=== PATIENT | female | born 1985 | race Caucasian/White ===

== ENCOUNTER → 2018-01-11 | Outpatient (REF) | payer OTHER ==
[2018-01-11 10:45] LABS: BASO % 0.3 % (0.0-1.0); EOS # 0.1 10^3/uL (0.0-0.50); EOS % 1.3 % (0.0-3.0); HEMATOCRIT 39.9 % (36.0-47.0); HEMOGLOBIN 12.8 g/dl (12.0-15.5); IMMATURE GRANULOCYTE % 0.3 % (0-3.0); LYMPH # 1.6 10^3/uL (1.5-4.5); LYMPH % 27.2 % (24.0-44.0); MEAN CORPUSCULAR HEMOGLOBIN 29.1 pg (27.0-33.0); MEAN CORPUSCULAR HGB CONC 32.1 g/dl (32.0-36.5); MEAN CORPUSCULAR VOLUME 90.7 fl (80.0-96.0); MONO # 0.3 10^3/uL (0.0-0.8); MONO % 4.8 % (0.0-5.0); NEUTROPHILS % 66.1 % (36.0-66.0); PLATELET COUNT, AUTOMATED 207 10^3/uL (150-450); RED CELL DISTRIBUTION WIDTH 11.9 % (11.5-14.5)
[2018-01-11 11:07] LABS: ALBUMIN 3.9 GM/DL (3.2-5.2); ALBUMIN/GLOBULIN RATIO 1.05 (1.00-1.93); ALKALINE PHOSPHATASE 70 U/L (45-117); ALT/SGPT 17 U/L (12-78); ANION GAP 1 MEQ/L (8-16); AST/SGOT 10 U/L (7-37); BILIRUBIN,TOTAL 0.5 MG/DL (0.2-1.0); BLOOD UREA NITROGEN 10 MG/DL (7-18); CALCIUM LEVEL 8.8 MG/DL (8.5-10.1); CARBON DIOXIDE LEVEL 33 MEQ/L (21-32); CHLORIDE LEVEL 106 MEQ/L (98-107); CREATININE FOR GFR 0.64 MG/DL (0.55-1.30); GLOMERULAR FILTRATION RATE > 60.0 (>60); GLUCOSE, FASTING 79 MG/DL (70-100); POTASSIUM SERUM 4.4 MEQ/L (3.5-5.1); RHEUMATOID FACTOR QUANT < 10.0 IU/ML (<15.0); SODIUM LEVEL 140 MEQ/L (136-145); TOTAL PROTEIN 7.6 GM/DL (6.4-8.2)
[2018-01-11 11:16] LABS: TOTAL 25(OH) VITAMIN D 31.2 NG/ML (30.0-100.0); VITAMIN B12 LEVEL 392 PG/ML
[2018-01-11 11:22] LABS: FOLATE 12.2 NG/ML
[2018-01-11 11:55] LABS: ERYTHROCYTE SEDIMENTATION RATE 8 mm/hr (0-20)
[2018-01-17 14:14] LABS: ANTINUCLEAR ANTIBODIES DIRECT Negative (Negative); VITAMIN B6,PYRIDOXAL PHOSPHATE 7.9 ug/L (2.0-32.8); VITAMIN E(ALPHA TOCOPHEROL) 8.2 mg/L (5.9-19.4); VITAMIN E(GAMMA TOCOPHEROL) 1.6 mg/L (0.7-4.9)
== END ==
LOC: M LABNEURO 09:41
DX: R51 Headache (principal)

== ENCOUNTER → 2018-03-20 | Outpatient (CLI) | payer OTHER ==
[~2018-03-20] MED LIST: ISOVUE-370 76% 100ML VIAL (Q9967) As Ordered ONE
--- NOTE | 2018-03-21 09:59 | REP ---
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 Decreased attenuation is present in the anterior left temporal and posterior left frontal lobe. There is dilatation of the overlying cortical sulci. This represents encephalomalacia. There is no intraparenchymal hemorrhage, acute infarct, mass or midline shift. The ventricular system is normal in appearance. There is no extra cerebral collection. There is no fracture. The visualized sinuses are clear. IMPRESSION: 1. 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 2. Left frontal temporal lobe encephalomalacia. Electronically Signed by Rony Sinha MD 03/21/2018 09:50 A
--- NOTE | 2018-03-21 10:00 | REP ---
CT ANGIO HEAD: HISTORY: Migraine headaches. CONTRAST: Isovue 370, 75 mL. The patient is status post left frontotemporal craniotomy and _ clipping of an __ anterior communicating artery aneurysm. There is no residual aneurysm. There is no new aneurysm or arteriovenous malformation. Major intracranial vessels are patent. The vertebral arteries are equal in size. The deep venous system and dural sinuses are patent. 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 There is no residual aneurysm. Electronically Signed by Rony Sinha MD 03/21/2018 10:08 A
== END ==
LOC: M RAD 17:19
PROVIDERS: ATTEND Psychiatry & Neurology Neurology
DX: G44.221 Chronic tension-type headache, intractable (principal); I67.1 Cerebral aneurysm, nonruptured; I60.12 Nontraumatic subarachnoid hemorrhage from left middle cerebral artery; G43.719 Chronic migraine without aura, intractable, without status migrainosus
CPT/HCPCS: 70450; 70496; Q9967

== ENCOUNTER → 2018-04-08 | Outpatient (REF) | payer OTHER | LOC: M SFHCLERA 10:48 | PROVIDERS: ATTEND Physician Assistant | DX: J02.9 Acute pharyngitis, unspecified (principal) ==

== ENCOUNTER → 2019-06-08 | Outpatient (CLI) | payer OTHER ==
--- NOTE | 2019-06-08 10:53 | REP ---
OB ULTRASOUND: Real-time sonographic evaluation of the gravid uterus is performed. There is a single living intrauterine gestation. The estimated gestational age is 20 weeks 1 day, EDC 10/25/2019. Today's measurements indicate appropriate growth. BPD 46 mm = 20 weeks 0 days, 46th percentile HC 170 mm = 19 weeks 4 days, 35th percentile AC 158 mm = 21 weeks 0 days, 68th percentile Femur length 32 mm = 19 weeks 6 days, 44th percentile HC/AC ratio 1.07 within normal range of 1.06-1.24. Estimated weight 348 grams, 56th percentile. Cervix is closed and measures 4.2 cm in length. heart rate 132 beats per minute. SEEN/GROSSLY UNREMARKABLE Lateral ventricles Yes Posterior fossa Yes Upper lip Yes Four-chamber heart Yes LVOT Yes RVOT Yes Stomach Yes Cord insertion Yes Three vessel cord Yes Kidneys Yes Bladder Yes Spine Yes position: Breech. Placenta: Anterior and fundal and grade 0 with no previa or abruption. Amniotic fluid: Within normal limits. Cystic structure left ovary contains a thin internal septation. It measures 4.0 x 2.5 x 2.5 cm. Blood flow is seen in the left ovary with duplex Doppler evaluation, with no torsion. Electronically Signed by Doe Soares MD 06/08/2019 11:43 A
== END ==
LOC: M RAD 09:07
PROVIDERS: ATTEND Obstetrics & Gynecology
DX: Z34.82 Encounter for supervision of other normal pregnancy, second trimester (principal); Z3A.19 19 weeks gestation of pregnancy

== ENCOUNTER 2019-10-22 20:57 | Outpatient (CLI) | payer OTHER ==
[~2019-10-22] VITALS: Ht 162.6 cm; Wt 79.3 kg
[2019-10-22 21:20] VITALS: BP 123/68
[2019-10-22] MEDS ORDERED: TUMS500C PO (21:30)
[2019-10-22] MEDS ORDERED: ACET-683 PO (21:30)
[2019-10-22] MEDS ORDERED: PRENTAB9 PO (21:30)
== END 2019-10-22 22:27 | disposition home or self-care (01) ==
LOC: M LDO 20:57
DX: O47.1 False labor at or after 37 completed weeks of gestation (principal); Z3A.39 39 weeks gestation of pregnancy
CPT/HCPCS: G0378; G0463

== ENCOUNTER 2019-10-25 00:18 | Inpatient (IN) | payer OTHER ==
[2019-10-25] VITALS (79 sets, daily range): BP systolic 67–142; BP diastolic 37–92
[~2019-10-25] VITALS: Ht 162.6 cm; Wt 78.8 kg
[~2019-10-25 00:18] MED LIST changes: +ACET-683 PO; -ISOVUE-370 76% 100ML VIAL (Q9967) As Ordered ONE; +PRENTAB9 PO; +TUMS500C PO
[2019-10-25] MEDS ORDERED: SIMETHICONE 80 MG CHEW TAB PO PRN (01:00)
[2019-10-25] MEDS ORDERED: BUTORPHANOL 2 MG/ML INJ (J0595) IV PRN (01:00)
[2019-10-25] MEDS ORDERED: PROMETHAZINE INJ 25 MG/ML VIAL (J2550) IV PRN (01:00)
[2019-10-25] MEDS ORDERED: CALCIUM CARBONATE 500 MG CHEW U/D PO PRN (01:00)
[2019-10-25] MEDS ORDERED: LACTATED RINGER'S 1000 ML IV STA (01:00)
[2019-10-25] MEDS ORDERED: ACETAMINOPHEN 500 MG TAB PO PRN (01:00)
[2019-10-25] MEDS ORDERED: diphenhydrAMINE 25MG CAP PO PRN (01:00)
[2019-10-25] MEDS ORDERED: MOM 30ML SUSPENSION UDC PO PRN (01:00)
--- NOTE | 2019-10-25 01:21 | HPEPDOC ---
Obstetrical History & Physical General Date of Admission Oct 25, 2019 at 00:47 History of Present Illness Patient is a 34yo at 40.0wks by LMP c/w 6wk US. Gush of clear fluid at 2300 with continual leakage. Then ctx q3-4min and getting stronger. No VB. +FM. No headache or visual changes. Chief Complaint: Contractions, term, Rupture of membranes Information Provided By: Patient : 3 Term: 2 Livin Care Care: Good Care Dating Final EDC: Oct 25, 2019 Final EDC by: LMP Antepartum Course Height (inches): 64 Pre- weight (lbs.): 147 Admission Weight (lbs.): 174 Change in Weight (lbs.): 27 Past Medical History Past Obstetrical History : Past Obstetrical History: Multigravida Type of Delivery: Spontaneous Vaginal Del. 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 Past Medical History Medical History migraines, depression, brain aneurysm treated with clips (cleared for no further tx by neuro in [place]) Surgical History: [place] teeth, Other (Brain surgery) Family History Significant Family History: No pertinent family hx Social History Marital Status: Family situation: Spouse/partner home Psychosocial History: Depression * Smoker: non-smoker Alcohol: rarely Abuse Violence Screening Have you been hit/kicked/slapp: No Have you been sexually assault: No Imunizations Tdap status: current Influenza Status: declined Allergies Coded Allergies: No Known Allergies (Unverified , 10/22/19) Medications Scheduled Acetaminophen (Acetaminophen) 500 Mg Tablet, 2 TAB PO Q6H for fever Calcium Carbonate (Tums) 200 Mg Tab.chew, 2 TAB PO Q4H for cough and congestion No.137/Iron/Folic Acd ( Vitamin Tablet) 1 Each Tablet, 1 TAB PO DAILY Physical Examination Physical Examination GENERAL: Alert and oriented times three. BREAST: . ABDOMEN: Gravid and non-tender to touch. FETUS: Is vertex (VTX) by sterile vaginal examination (SVE), fetus is 3200 by Kris. HEART RATE: Regular rate and rhythm. LUNGS: Clear to auscultation (CTA). EXTREMITIES: No edema. Laboratory Data 24H LABS Laboratory Tests 2 10/25/19 00:51: Serology Scanned Report Hepatitis B Testing CBC/BMP 9.6/11.7/34.8/176 Urine Culture: No Growth Pertinent Laboratoy Data Blood Type: O+ RBC Antibody Screen: Negative HIV: Negative Hepatitis B: Negative Rapid Plasma Reagin: Nonreactive Rubella: Immune Varicella: Immune Chlamydia/Gonorrhea: Negative Group B Streptococcus: Negative Quad Screen Test: Negative Cystic Fibrosis: Negative Glucose Tolerance Test: 104 Anatomy Ultrasound Ultrasound Date: Jun 08, 2019 Placenta Location: Anterior Normal Anatomy: Yes Placenta Previa: No Estimated Weight (grams): 348 Steroid Therapy Steroid Therapy: No Vaginal Examination Dilation: 1cm Effacement: 50% Station: -3 Cervical Consistency: Medium Cervical Position: Posterior Presentation: Cephalic presentation Assessment Heart Rate (FHR): 120 Variability: Decreased Accelerations: Positive Decelerations: None Tocometer Contractions: Yes Frequency: regular, every 2-5 min. Multi-drug resistant Organism: No history of MDRO Assessment/Plan Assessment Patient is a 34yo at 40.0wks by LMP c/w 6wk US. Admit for SROM and expect delivery by . Pain management per patient preference, which was discussed with her. I discussed risks of with patient of failure with section, distress, bleeding, infection, , vaginal or perineal or ne ighboring organ tear. Currently, fetus is reassuring. GBS is negative, no need for antibiotics. Plan Admit and orient. Engine Lathe Operator and consent. Diet: clears. Group B Streptococcus (GBS) negative. Labs and intravenous (IV) per unit protocol. Counseled on Pitocin augmentation. Lactated Ringers (LR): Bolus 500 mL, then at 125 mL/hr. Anticipate normal spontaneous delivery (). C-S or operative delivery as appropriate was d/w patient. Pain management per patient preference. Erica Lyon MD Oct 25, 2019 01:21
[2019-10-25 01:35] LABS: BASO % 0.2 % (0.0-1.0); EOS % 0.4 % (0.0-3.0); HEMATOCRIT 33.9 % (36.0-47.0); HEMOGLOBIN 11.6 g/dl (12.0-15.5); LYMPH # 1.9 10^3/uL (1.5-5.0); MEAN CORPUSCULAR HEMOGLOBIN 30.9 pg (27.0-33.0); MEAN CORPUSCULAR HGB CONC 34.2 g/dl (32.0-36.5); MEAN CORPUSCULAR VOLUME 90.4 fl (80.0-96.0); MONO # 0.6 10^3/uL (0.0-0.8); MONO % 6.5 % (0.0-5.0); NEUTROPHILS # 6.9 10^3/uL (1.5-8.5); NEUTROPHILS % 72.2 % (36.0-66.0); PLATELET COUNT, AUTOMATED 119 10^3/uL (150-450); RED BLOOD COUNT 3.75 10^6/uL (4.00-5.40); WHITE BLOOD COUNT 9.6 10^3/uL (4.0-10.0)
[2019-10-25] MEDS: LR 1,000 ML IV SCH ×3 (04:13→11:46)
[2019-10-25] MEDS ORDERED: FENTANYL 2MCG/ML ROPIVACAINE 0.2% IN 0.9% NACL 100ML IVBAG As Ordered ONE (09:31)
[2019-10-25] MEDS ORDERED: ePHEDrine SULFATE 25 MG/5 ML(5MG/ML) SYRINGE As Ordered ONE ×2 (10:23→10:26)
[2019-10-25] MEDS ORDERED: EPINEPHrine INJ 1 MG/ML 1ML AMP As Ordered ONE (10:26)
--- NOTE | 2019-10-25 11:10 | IPNPDOC ---
Obstetrical Progress Note Date of Service Oct 25, 2019 Subjective Patient now resting comfortable with epidural in place. Denies any complaints. Objective Vital Signs Date Time Temp Pulse Resp B/P (MAP) Pulse Ox O2 Delivery O2 Flow Rate FiO2 10/25/19 05:03 97.3 94 20 119/67 (84) Assessment Heart Rate (FHR): 120 Variability: Moderate Accelerations: Positive Decelerations: None Heart Rate Tracing: Category I Tocometer Contractions: Yes Frequency: irregular, every 3-7 min. Duration: less than 60 seconds Sterile Vaginal Examination Dilation: 3 cm Effacement (%): 80% Station: -2 Cervical Consistency: Soft Cervical Position: Posterior Postion/Presentation: Cephalic presentation Assessment and Plan Status: Reassuring Group B Streptococcus: Negative Anticipate: Vaginal Delivery Additional Comments Patient has made minimal spontaneous cervical change. FHRT cat I. Patient counseled and amenable to augmentation with pitocin protocol. Patient desires to proceed, safe to continue. MAKENZIE KEY DO Oct 25, 2019 11:10
[2019-10-25] MEDS ORDERED: OXYTOCIN DRIP 30 UNITS in IV 1 EA IV SCH ×2 (11:15→17:35)
[2019-10-25] MEDS ORDERED: REFRIGERATOR IV KEYS XX PRN (11:45)
[2019-10-25] MEDS ORDERED: EPIDURAL COMMENT XX SCH (11:45)
[2019-10-25] MEDS ORDERED: LACTATED RINGER'S 1000 ML IV PRN (11:45)
[2019-10-25] MEDS ORDERED: diphenhydrAMINE 50MG/ML VIAL (J1200) IV PRN (11:45)
[2019-10-25] MEDS ORDERED: FENTANYL/ROPIVACAINE/NACL BAG 100 ML EPIDURAL SCH (11:45)
[2019-10-25] MEDS ORDERED: NALOXONE INJ 0.4MG/1ML VIAL (J2310 PER 1MG) IV PRN (11:45)
[2019-10-25] MEDS ORDERED: ONDANSETRON 4MG/2ML VIAL IV PRN (11:45)
[2019-10-25] MEDS ORDERED: EPIDURAL/PCA KEYS XX PRN (11:45)
[2019-10-25] MEDS: ePHEDrine SULFATE 25 MG/5 ML(5MG/ML) SYRINGE IV PRN (11:47)
[2019-10-25] MEDS ORDERED: ACETAMINOPHEN TAB 650MG DOSE (2X325MG) PO PRN (17:45)
[2019-10-25] MEDS ORDERED: IBUPROFEN 600MG TAB PO PRN (17:45)
[2019-10-25] MEDS ORDERED: DIBUCAINE 1% OINTMENT 30GM TOP PRN (17:45)
--- NOTE | 2019-10-25 20:41 | DNPDOC ---
[facility] Delivery Note Delivery Note DATE OF DELIVERY: 25OCT2019 PREDELIVERY DIAGNOSIS: 40+0/7 weeks' gestation and labor. POST DELIVERY DIAGNOSIS: Delivered. PROCEDURE: Spontaneous vaginal delivery JANITOR HEAD: Dr. Makenzie Thacker ANESTHESIA: Epidural ESTIMATED BLOOD LOSS: 200mL. FINDINGS: 7 pound 1 ounce 3210g female infant, Score 9/9, nuchal cord times x1. DELIVERY SUMMARY: Patient is a 34-year-old G3 now P3 admitted for PROM. Patient progressed on pitocin protocol to c/c/+1. Patient feeling pelvic pressure and urge to push therefore prepped for delivery. With excellent maternal effort, spontaneous vaginal delivery of a viable female infant. Presentation was OA with restitution to ROT with left shoulder anterior position. Anterior shoulder delivered without difficulty followed by body. No nuchal/foot/body cord noted. No meconium appreciated. Infant placed on maternal abdomen with spontaneous cry with care transferred to team. Pitocin IV bolus initiated. Delayed cord clamping for 4 minutes. Three vessel cord clamped x2 and cut by FOB. Cord blood sample obtained. Third stage spontaneous with cord avulsion with placenta in the vagina that was manually expressed. Fundal massage revealed firm uterine tone and hemostasis. Inspection revealed a 1st degree perineal laceration that was repaired using 2-0 vicryl in routine fashion with good approximation of tissue and hemostasis. Patient requested removal of vulvar skin tags which was performed using pickups and scissors and the sites made hemostatic using silver nitrate. EBL 200ml. Mother and stable and bonding upon my leaving the [facility] MAKENZIE August DO Oct 25, 2019 20:41
[2019-10-25] MEDS: IBUPROFEN 800 MG TAB PO PRN (21:19)
[2019-10-25] MEDS: DOCUSATE SODIUM 100 MG CAP PO SCH (21:20)
[2019-10-25] MEDS: ACETAMINOPHEN 500 MG TAB PO PRN (23:39)
[2019-10-26] MEDS: IBUPROFEN 800 MG TAB PO PRN ×2 (05:08→21:43)
[2019-10-26 06:00] VITALS: BP 108/52
[2019-10-26] MEDS: DOCUSATE SODIUM 100 MG CAP PO SCH ×2 (08:54→19:31)
[2019-10-26] MEDS: PRENATAL VITAMINS CHEWABLE TABLET PO SCH (08:54)
--- NOTE | 2019-10-26 09:08 | IPNPDOC ---
Progress Note Date of Service: Oct 26, 2019 Day#: 1 Progress Note SUBJECT: Ms. Lowe is a 34yo status post uncomplicated spontaneous vagi nal delivery with vaginal laceration and repair, doing well day #2. She has been ambulating, voiding spontaneously without issue and tolerating regular diet. Breast feeding without issue. Reports lochia is like a normal period. Patient is ambulating well. Denies any pain. Voiding and stooling without difficulty. OBJECTIVE: VITAL SIGNS: Within normal limits, afebrile. Alert and oriented times three. Breath sounds clear to auscultation. Heart rate: Regular rate and rhythm, no murmurs, rubs or gallops. Abdomen: Fundus firm at U-2. Soft, NTTP. [Minimal] lochia. ASSESSMENT: Ms. Lowe is a 34yo PPD2 status post uncomplicated spontaneous vaginal delivery with vaginal laceration and repair. Vitals within normal limits, afebrile, hemodynamically stable with no evidence of infection. PLAN: 1. Discharge to home today. 2. Tylenol and Motrin for pain. 3. Encourage breast feeding and ambulation. 4. desires BTL, will schedule for interval tubal 5. Routine PP visit in 6 weeks in clinic. 6. Discussed return precautions at length. VS, I&O, 24H, Fishbone Vital Signs/I&O Vital Signs Date Time Temp Pulse Resp B/P (MAP) Pulse Ox O2 Delivery O2 Flow Rate FiO2 10/26/19 06:00 97.9 89 18 108/52 (70) 99 Room Air I&O- Last 24 Hours up to 6 AM 10/26/19 06:00 Intake Total 6257 ml Output Total 2725 ml Balance 3532 ml SARAI LINDSAY DO Oct 26, 2019 09:08
[2019-10-26 18:00] VITALS: BP 113/58
[2019-10-27] MEDS: ACETAMINOPHEN 500 MG TAB PO PRN (05:01)
[2019-10-27 06:02] VITALS: BP 119/57
[2019-10-27] MEDS ORDERED: DIBU10OI TOP (07:10)
[2019-10-27] MEDS ORDERED: DOCU100C16 PO (07:10)
[2019-10-27] MEDS ORDERED: IBUP80TA PO (07:10)
[2019-10-27] MEDS: DOCUSATE SODIUM 100 MG CAP PO SCH (08:47)
[2019-10-27] MEDS: PRENATAL VITAMINS CHEWABLE TABLET PO SCH (08:47)
[2019-10-27] MEDS: IBUPROFEN 800 MG TAB PO PRN (08:48)
--- NOTE | 2019-11-13 11:52 | DSES ---
DATE OF ADMISSION: 10/25/2019 DATE OF DISCHARGE: 10/27/2019 This lady is a 34-year-old 3, now para 3, admitted with contractions at 40 weeks of gestation, spontaneous rupture of membranes. Had an epidural place and delivered a live- female , 7 pounds 1 ounce, 3210 grams, scores of 9 and 9 at one and five minutes, respectively. Risk factors: She had a brain aneurysm, which was clipped. She has depression and migraines. Her blood pressure on discharge was 119/57, respirations 18, pulse 87, temperature 97.7. Her admitting hemoglobin was 11.6, hematocrit 33.9, and platelets were 119. The rest of the examination is unremarkable. Normocephalic, atraumatic. Neck: Full range of motion. Pupils equal and reactive to light. Distal pulses are symmetric. No evidence of deep venous thrombosis (DVT), pulmonary embolus (PE), or superficial phlebitis. Chest is clear bilaterally to bases. No wheezes or rhonchi. No costovertebral angle (CVA) tenderness. Abdomen soft. Four-quadrant bowel sounds are noted. Uterus is 2 below. Perineum is intact and normal lochia. No rashes, lesions, or pruritus. No arthralgia or myalgia. No complaint of joint pain. No complaint of cough, wheeze, shortness of breath, or dyspnea on exertion. No nausea, vomiting, diarrhea, or constipation. In summary, we have a term gestation, delivered a live- female . Medications were dispensed at [place]. She has a 6-week checkup with [facility]. Discharge instructions were given. All questions were answered. A 20-minute discussion. DIANE
== END 2019-10-27 12:05 | disposition home or self-care (01) | DRG 807 ==
LOC: M LDO 00:18 → M LDI 00:47 → M OBS 19:16
PROVIDERS: ADMIT Obstetrics & Gynecology; ATTEND Obstetrics & Gynecology
PROC: 10E0XZZ Delivery of Products of Conception, External Approach (ICD-10-PCS; principal; 2019-10-25)
PROC: 0HQ9XZZ Repair Perineum Skin, External Approach (ICD-10-PCS; 2019-10-25)
DX: O42.02 Full-term premature rupture of membranes, onset of labor within 24 hours of rupture (principal); Z37.0 Single live birth; Z3A.40 40 weeks gestation of pregnancy; O48.0 Post-term pregnancy; O70.0 First degree perineal laceration during delivery

== ENCOUNTER 2019-12-25 06:04 | Day surgery (SDC) | payer OTHER ==
[~2019-12-25] VITALS: Ht 162.6 cm; Wt 72.6 kg
[~2019-12-25 06:04] MED LIST changes: +ACETAMINOPHEN *IV* 1,000 MG IV ONE; +DIBU10OI TOP; +DOCU100C16 PO; +GABAPENTIN 300 MG CAP PO ONE; +IBUP80TA PO; +LR 1,000 ML IV ONE; +SCOPOLAMINE 1MG TRANSDERMAL PATCH TOP ONE
[2019-12-25] MEDS ORDERED: BUPIVACAINE HCL 0.25% 30ML VIAL As Ordered ONE (06:41)
[2019-12-25] MEDS ORDERED: ACETAMINOPHEN 1000MG 100ML IV BTL (OFIRMEV) (J0131 PER 10MG) As Ordered ONE (07:03)
[2019-12-25] MEDS ORDERED: ONDANSETRON 4MG/2ML VIAL As Ordered ONE ×2 (07:03→11:01)
[2019-12-25] MEDS ORDERED: HYDROmorphone HCL 2 MG/ML 1ML VIAL (J1170) As Ordered ONE (07:03)
[2019-12-25] MEDS ORDERED: MIDAZOLAM INJ 2MG/2ML VIAL (J2250 PER 1MG) As Ordered ONE (07:03)
[2019-12-25] MEDS ORDERED: LIDOCAINE 2% 100MG/5ML SDV (FOR ANES.) As Ordered ONE (07:03)
[2019-12-25] MEDS ORDERED: propofoL 200 MG/20 ML VIAL As Ordered ONE (07:03)
[2019-12-25] MEDS ORDERED: dexameTHASONE 4 MG/ML 1ML VIAL (J1100 PER 1MG) As Ordered ONE (07:03)
[2019-12-25] MEDS ORDERED: KETOROLAC 60MG 2ML VIAL As Ordered ONE (07:03)
[2019-12-25] MEDS ORDERED: fentaNYL 100 MCG/2 ML INJECTION (J3010) As Ordered ONE ×2 (07:03→10:09)
[2019-12-25] MEDS ORDERED: ROCURONIUM BROMIDE 50 MG/5 ML VIAL As Ordered ONE ×2 (07:03→08:37)
[2019-12-25 07:20] LABS: BASO % 0.3 % (0.0-1.0); EOS # 0.2 10^3/uL (0.0-0.5); EOS % 2.6 % (0.0-3.0); HEMATOCRIT 41.2 % (36.0-47.0); HEMOGLOBIN 12.8 g/dl (12.0-15.5); LYMPH # 1.9 10^3/uL (1.5-5.0); LYMPH % 31.1 % (24.0-44.0); MEAN CORPUSCULAR HEMOGLOBIN 28.6 pg (27.0-33.0); MEAN CORPUSCULAR HGB CONC 31.1 g/dl (32.0-36.5); MEAN CORPUSCULAR VOLUME 92.2 fl (80.0-96.0); MONO # 0.4 10^3/uL (0.0-0.8); MONO % 6.7 % (0.0-5.0); NEUTROPHILS # 3.6 10^3/uL (1.5-8.5); PLATELET COUNT, AUTOMATED 197 10^3/uL (150-450); RED BLOOD COUNT 4.47 10^6/uL (4.00-5.40); WHITE BLOOD COUNT 6.1 10^3/uL (4.0-10.0)
[2019-12-25 07:44] LABS: HCG, SERUM QUALITATIVE NEGATIVE (NEGATIVE)
[2019-12-25 07:45] LABS: ALT/SGPT 52 U/L (12-78); BILIRUBIN,TOTAL 0.2 MG/DL (0.2-1.0); BLOOD UREA NITROGEN 15 MG/DL (7-18); CALCIUM LEVEL 8.8 MG/DL (8.5-10.1); CARBON DIOXIDE LEVEL 26 MEQ/L (21-32); CHLORIDE LEVEL 108 MEQ/L (98-107); CREATININE FOR GFR 0.74 MG/DL (0.55-1.30); GLOMERULAR FILTRATION RATE > 60.0 (>60); GLUCOSE, FASTING 89 MG/DL (70-100); POTASSIUM SERUM 4.4 MEQ/L (3.5-5.1); SODIUM LEVEL 140 MEQ/L (136-145); TOTAL PROTEIN 7.8 GM/DL (6.4-8.2)
[2019-12-25] MEDS ORDERED: SUGAMMADEX SODIUM 500 MG/5 ML VIAL (BRIDION) As Ordered ONE (08:09)
[2019-12-25] MEDS ORDERED: ESMOLOL INJ 100MG/10ML VIAL As Ordered ONE (08:56)
[2019-12-25] MEDS ORDERED: LR 1,000 ML IV SCH (10:00)
[2019-12-25] MEDS ORDERED: oxyCODONE 5MG TAB PO PRN (10:00)
[2019-12-25] MEDS ORDERED: IBUPROFEN 800 MG TAB PO SCH ×2 (10:00→17:30)
[2019-12-25] MEDS ORDERED: ONDANSETRON 4MG/2ML VIAL IV PRN (10:00)
[2019-12-25] MEDS: oxyCODONE 5MG TAB PO PRN ×2 (10:07→11:12)
--- NOTE | 2019-12-25 10:07 | ROOPDOC ---
[facility] Report Of Operation Report of Operation DATE OF PROCEDURE: 12/25/19 PREPROCEDURE DIAGNOSES: satisfied parity, left ovarian cyst, suspected endometriosis POSTPROCEDURE DIAGNOSES: satisfied parity, left dermoid ovarian cyst PROCEDURE: laparoscopic bilateral salpingectomy, left ovarian cystectomy SURGEON: Juni Lindsay DO FOSTER CARE WORKER: Padmini Thacker DO ANESTHESIA: general ESTIMATED BLOOD LOSS: Approximately 150 mL. COMPLICATIONS: uterine perforation REMARKS: none PROCEDURE NOTE: The risks, benefits, and alternatives of the procedure were discussed and written consent was obtained. The patient was taken to the OR where she was placed under general anesthesia and nasogastric decompression of the stomach was performed. She was positioned in low lithotomy in the yellow fins and her arms were tucked. The vagina, perineum, and abdomen were prepped and draped in a sterile fashion. A temple catheter was placed in the bladder. A final time out was performed. A speculum was placed in the vagina and a hulka uterine manipulator was placed on the cervix grasping the anterior lip. The speculum was removed and gloves were changed. 0.5% marcaine was injected into the infraumbilical fold and a 5mm incision was made. A 5mm port was then placed via the direct technique. The area below the entry site was noted to be atraumatic, the opening pressure was 6mmHg. The area 2cm superior and medial to the bilateral ASISs was identified via transillumination and direct visualization. 0.5% marcanie was injected and 5mm incisions were made. 5mm ports were placed under direct visualization. A anatomy survey was performed; normal appearing liver, gallbladder, and stomach edges. Appendix not visualized. The hulka tip was noted to be visualized protru ding from the lower posterior uterine segment. The left ovary had an approx 4cm cyst that appeared to be fat filled. The right ovary appeared normal. The bilateral fallopian tubes appeared normal. The hulka manipulator was removed and a moist sponge stick was replaced. The puncture site was visualized to have little bleeding and was observed. The ligasure was then used to transect the mesosalpinx below the bilateral fallopian tubes to the level of the cornua. The tubes were then transected and removed in-tact via the 5mm ports. The left ovarian cyst shell was then incised with monopolar sheers. A small opening was made in the cyst causing a small amount of spill of fatty contents and hair which was suctioned. The cyst was then shelled from the ovary and with the exception of the initial incision, was in-tact. The umbilical port site was then extended with the scalpel to 10mm and a 10mm port was placed under direct visualization. A 10mm endocatch was introduced and the cyst placed within. In attempt to remove the cyst from the umbilical port the endocatch bag broke. The port was re-introduced the the cyst placed within a new endocatch bag. The incision was extended by 2mm and the cyst was removed via the umbilical port. The cyst bed was then cauterized with the monopolar sheers. The abdomen was copiously irrigated with normal saline to remove any debris. The posterior uterine segment puncture site was noted to have a small amount of oozing and was cauterized with the monopolar sheers. Noemi was then applied to the cyst bed and puncture site. All surgical sites were then inspected and noted to be hemostatic. The ports were then removed under direct visualization. The pneumoperitoneum was released. The fascia of the 10mm port site was grasped with koker clamps and 0-vicryl was used to reapproximate the fascia via a figure of eight fashion. The fascia was palpated to be without defect. The subcutaneous tissue of the port sites was reapproximated with 3-0 monocryl. The surgical sites were then secured with dermabond. The sponge stick was removed from the vagina and a speculum placed. The hulka puncture site was noted to be bleeding. 0-vicryl was then used via a figure of eight and the site was hemostatic. The speculum was removed. The temple was removed from the bladder. The sponge, lap, and needle counts were correct x2. The patient tolerated the procedure well. She was transferred to the PACU in stable condition. JUNI LINDSAY DO Dec 25, 2019 10:07
[2019-12-25] MEDS: fentaNYL 100 MCG/2 ML INJECTION (J3010) IV PRN ×2 (10:11→10:17)
[2019-12-25 13:10] VITALS: BP 117/59
== END 2019-12-25 13:10 | disposition home or self-care (01) ==
LOC: M SDC 06:04
PROVIDERS: ATTEND Obstetrics & Gynecology
DX: Z30.2 Encounter for sterilization (principal); N83.292 Other ovarian cyst, left side; F41.9 Anxiety disorder, unspecified; F32.9 Major depressive disorder, single episode, unspecified
CPT/HCPCS: 36415; 58661; 58662; 80053; 84703; 85025; 86850; 86900; 86901; 88302; 88305; J0131; J1100; J1170; J1885; J2250; J2405; J3010

== ENCOUNTER → 2022-03-09 | Outpatient (CLI) | payer OTHER ==
[~2022-03-09] MED LIST changes: -ACETAMINOPHEN *IV* 1,000 MG IV ONE; -DIBU10OI TOP; +DIBU28OI2 TOP; -GABAPENTIN 300 MG CAP PO ONE; -LR 1,000 ML IV ONE; -SCOPOLAMINE 1MG TRANSDERMAL PATCH TOP ONE
== END ==
LOC: M PLAIMG 09:48
PROVIDERS: ATTEND Student in an Organized Health Care Education/Training Program
DX: R53.83 Other fatigue (principal); R20.0 Anesthesia of skin

== ENCOUNTER → 2022-03-15 | Outpatient (CLI) | payer OTHER | LOC: M SOG 09:40 | PROVIDERS: ATTEND Orthopaedic Surgery Hand Surgery | DX: M79.644 Pain in right finger(s) (principal) ==

== ENCOUNTER → 2022-03-30 | Outpatient (RCR) | payer OTHER | LOC: M OT 12:27 | PROVIDERS: ATTEND Orthopaedic Surgery Hand Surgery | DX: M79.644 Pain in right finger(s) (principal) ==

== ENCOUNTER 2022-12-22 16:58 | Emergency (ER) | payer OTHER ==
[~2022-12-22] VITALS: Ht 162.6 cm; Wt 77.1 kg
[~2022-12-22 16:58] MED LIST changes: -MACR100C43 PO
[2022-12-22] MEDS ORDERED: KETOROLAC 30 MG/ML 1ML VIAL IV ONE (22:00)
[2022-12-22] MEDS ORDERED: ISOVUE-370 76% 100ML VIAL As Ordered ONE (22:20)
[2022-12-22 22:32] LABS: URINE PREG TEST NEGATIVE (NEGATIVE)
[2022-12-22 22:33] LABS: BASO % 0.4 % (0.0-1.0); EOS # 0.1 10^3/uL (0.0-0.5); EOS % 1.2 % (0.0-3.0); HEMATOCRIT 40.7 % (36.0-47.0); HEMOGLOBIN 13.5 g/dl (12.0-15.5); LYMPH # 3.2 10^3/uL (1.5-5.0); LYMPH % 39.6 % (24.0-44.0); MEAN CORPUSCULAR HEMOGLOBIN 30.1 pg (27.0-33.0); MEAN CORPUSCULAR HGB CONC 33.2 g/dl (32.0-36.5); MEAN CORPUSCULAR VOLUME 90.8 fl (80.0-96.0); MONO # 0.4 10^3/uL (0.0-0.8); MONO % 5.4 % (2.0-8.0); NEUTROPHILS # 4.3 10^3/uL (1.5-8.5); NEUTROPHILS % 53.2 % (36.0-66.0); PLATELET COUNT, AUTOMATED 233 10^3/uL (150-450); RED BLOOD COUNT 4.48 10^6/uL (4.00-5.40); WHITE BLOOD COUNT 8.1 10^3/uL (4.0-10.0)
[2022-12-22 23:03] LABS: LIPASE 40 U/L (12-53)
[2022-12-22 23:06] LABS: ALKALINE PHOSPHATASE 66 U/L (46-116); ALT/SGPT 14 U/L (7.0-40); AST/SGOT 14 U/L (<34); BILIRUBIN,DIRECT < 0.1 MG/DL (<0.4); BILIRUBIN,TOTAL 0.3 MG/DL (0.3-1.2); CK-MB VALUE MASS < 1.0 NG/ML (<3.6); TOTAL PROTEIN 7.4 G/DL (5.7-8.2)
[2022-12-22 23:09] LABS: CPK CREATINE PHOSPHOKINASE 52 U/L (34-145); MB/CK RELATIVE INDEX 1.92 (< OR =4)
[2022-12-22] MEDS ORDERED: MACR100C43 PO (23:44)
[2022-12-23 00:02] VITALS: BP 127/77; TEMP 97.9; O2SAT 99
== END 2022-12-23 00:03 | disposition home or self-care (01) ==
LOC: M ED 16:58
DX: N39.0 Urinary tract infection, site not specified (principal); D18.03 Hemangioma of intra-abdominal structures; I67.1 Cerebral aneurysm, nonruptured; N28.1 Cyst of kidney, acquired; Z87.891 Personal history of nicotine dependence; Z79.2 Long term (current) use of antibiotics
CPT/HCPCS: 71045; 74177; 80053; 80076; 81001; 82150; 82550; 82553; 83690; 84484; 84703; 85025; 87086; 93005; 96374; 99284; J1885; Q9967

== ENCOUNTER → 2022-12-22 | Outpatient (REF) | payer OTHER ==
[~2022-12-22] MED LIST changes: +MACR100C43 PO
[2022-12-22 17:54] LABS: BASO % 0.3 % (0.0-1.0); EOS # 0.1 10^3/uL (0.0-0.5); EOS % 0.8 % (0.0-3.0); HEMATOCRIT 43.4 % (36.0-47.0); HEMOGLOBIN 13.7 g/dl (12.0-15.5); LYMPH # 2.3 10^3/uL (1.5-5.0); LYMPH % 29.2 % (24.0-44.0); MEAN CORPUSCULAR HEMOGLOBIN 29.5 pg (27.0-33.0); MEAN CORPUSCULAR HGB CONC 31.6 g/dl (32.0-36.5); MEAN CORPUSCULAR VOLUME 93.3 fl (80.0-96.0); MONO # 0.4 10^3/uL (0.0-0.8); MONO % 5.4 % (2.0-8.0); NEUTROPHILS % 63.9 % (36.0-66.0); PLATELET COUNT, AUTOMATED 246 10^3/uL (150-450); RED BLOOD COUNT 4.65 10^6/uL (4.00-5.40); WHITE BLOOD COUNT 7.8 10^3/uL (4.0-10.0)
[2022-12-22 18:18] LABS: LIPASE 34 U/L (12-53)
[2022-12-22 18:19] LABS: AMYLASE 72 U/L (30-118)
[2022-12-22 18:20] LABS: ALBUMIN 4.2 G/DL (3.2-5.2); ALKALINE PHOSPHATASE 71 U/L (46-116); ALT/SGPT 18 U/L (7.0-40); AST/SGOT 16 U/L (<34); BILIRUBIN,TOTAL 0.4 MG/DL (0.3-1.2); BLOOD UREA NITROGEN 15 MG/DL (9-23); CALCIUM LEVEL 8.8 MG/DL (8.5-10.1); CARBON DIOXIDE LEVEL 23 MMOL/L (20-31); CHLORIDE LEVEL 106 MMOL/L (98-107); CREATININE FOR GFR 0.58 MG/DL (0.55-1.30); GLOMERULAR FILTRATION RATE > 60.0 (>60); GLUCOSE, FASTING 82 MG/DL (60-100); POTASSIUM SERUM 4.1 MMOL/L (3.5-5.1); SODIUM LEVEL 138 MMOL/L (136-145); TOTAL PROTEIN 7.6 G/DL (5.7-8.2)
== END ==
LOC: M LAB REF 16:41
PROVIDERS: ATTEND Nurse Practitioner Family
DX: R19.7 Diarrhea, unspecified (principal); R10.84 Generalized abdominal pain